=== PATIENT | male | born 2000 | race Caucasian/White ===

== ENCOUNTER 2020-09-04 05:07 | Emergency (ER) | payer MEDICAID, SELFPAY ==
[2020-09-04 05:12] VITALS: BP 154/95; PULSE 54; RESP 16; TEMP 35.7; O2SAT 100
--- NOTE | 2020-09-04 05:23 | ED.GENADULT ---
HPI - General Adult General Chief complaint: Abdominal Pain Stated complaint: abd pain Time Seen by Provider: 09/04/20 05:11 History of Present Illness HPI narrative: Patient is a 20-year-old gentleman who presents to emergency department with chief complaint of epigastric discomfort. Patient reports that this evening he started having pain in the epigastric region reports it radiates to his back patient reports no pain in the lower quadrants reports that he ate [employer] earlier today patient denies fever denies chills denies vomiting or diarrhea. Patient reports is not worsened by anything nor is improved by anything Related Data Allergies Allergy/AdvReac Type Severity Reaction Status Date / Time No Known Allergies Allergy Verified 09/04/20 05:14 Review of Systems Review of Systems: Narrative: A 10 system review of systems was completed on the patient and is negative except for what is stated in the HPI. Nursing and ancillary documentation was reviewed. PMFSH Comments Patient denies past medical history Social history the patient denies smoking or drinking Exam Narrative: Exam Narrative: GENERAL: Well-appearing, well-nourished, and in no acute distress. HEAD: Normocephalic, atraumatic. EYES: PERRLA and EOMI. ENT: Nares clear, no rhinorrhea or epistaxis. Mucous membranes moist. NECK: Supple. CHEST: Clear to auscultation. No respiratory distress. HEART: Regular rate and rhythm. No murmur heard. Normal peripheral pulses. ABDOMEN: Soft, mild tenderness to palpation in the epigastric region, nondistended, normal active bowel sounds. EXTREMITIES: Normal range of motion. No edema. SKIN: Warm, dry, no rash. NEURO: No focal deficits. Alert and oriented x3. PSYCH: Normal mood and affect. Course Vital Signs Vital signs: Vital Signs Temperature 35.7 C L 09/04/20 05:12 Pulse Rate 54 L 09/04/20 05:12 Respiratory Rate 16 09/04/20 05:12 Blood Pressure 154/95 H 09/04/20 05:12 Pulse Oximetry 100 09/04/20 05:12 Temperature 35.7 C L 09/04/20 05:12 Pulse Rate 54 L 09/04/20 05:12 Respiratory Rate 16 09/04/20 05:12 Blood Pressure 154/95 H 09/04/20 05:12 Pulse Oximetry 100 09/04/20 05:12 Medical Decision Making Vital Signs Vital Signs: Vital Signs Temperature 35.7 C L 09/04/20 05:12 Pulse Rate 54 L 09/04/20 05:12 Respiratory Rate 16 09/04/20 05:12 Blood Pressure 154/95 H 09/04/20 05:12 Pulse Oximetry 100 09/04/20 05:12 Temperature 35.7 C L 09/04/20 05:12 Pulse Rate 54 L 09/04/20 05:12 Respiratory Rate 16 09/04/20 05:12 Blood Pressure 154/95 H 09/04/20 05:12 Pulse Oximetry 100 09/04/20 05:12 Lab Data Result diagrams: 09/04/20 05:44 09/04/20 05:44 Labs: Lab Results 09/04/20 09/04/20 09/04/20 Range/Units 05:44 05:44 05:44 WBC 9.0 (4.5-10.0) K/mm3 RBC 4.83 (4.6-6.20) M/mm3 Hgb 14.9 (14.0-18.0) g/dL Hct 44.1 (42.0-52.0) % MCV 91.3 (80-100) fl MCH 30.8 (26-34) pg MCHC 33.8 (32-36) g/dl RDW 12.4 (11.5-14.5) % Plt Count 227 (150-375) k/mm3 MPV 10.0 (7.4-10.4) fl Immature Gran % (Auto) 0.3 (0-0.5) % Neut % (Auto) 55.4 (45.5-73.1) % Lymph % (Auto) 31.7 (18.3-44.2) % Garfield % (Auto) 10.7 H (2.6-8.5) % Eos % (Auto) 1.7 (0-4.4) % Baso % (Auto) 0.2 (0.2-1.2) % Lymph # (Auto) 2.85 (0.9-3.2) K/mm3 Garfield # (Auto) 1.0 H (0.1-0.6) K/mm3 Eos # (Auto) 0.2 (0-0.3) K/mm3 Baso # (Auto) 0.0 (0.0-0.1) K/mm3 Abs Immat Gran (auto) 0.03 (0.00-0.031) K/mm3 Absolute Neuts (auto) 5.0 (1.3-6.7) K/mm3 Absolute Nucleated RBC 0.0 (0.0-0.012) K/mm3 Nucleated RBC % 0.0 (0.0-0.2) % Sodium 141 (137-145) mmol/L Potassium 3.8 (3.4-5.0) mmol/L Chloride 107 (98-107) mmol/L Carbon Dioxide 27 (22-30) mmol/L Anion Gap 7 L (8-16) mmol/L BUN 15 (9-20) mg/dL Creatinine 1.00 (0.7-1.3) mg/dL Estim Creat Clear
[2020-09-04] MEDS: FAMOTIDINE 20 MG/2 ML VIAL IV PUSH (05:46)
[2020-09-04] MEDS: SODIUM CHLORIDE 0.9% IV 1,000 ML 999 ML IV CONT (05:47)
[2020-09-04] MEDS: ONDANSETRON INJ 4 MG/2 ML VIAL IV PUSH (05:47)
[2020-09-04 06:00] LABS: Add Urine Microscopic? NO; Appearance Urine Clear (Clear); Bilirubin Urine Negative (Negative); Blood Urine Negative (Negative); Color Urine Yellow (Yellow); Glucose Urine UA Negative (Negative); Ketones Urine Negative (Negative); Leukocyte Esterase Ur Negative LEU/UL (Negative); Nitrate Urine Negative (Negative); Protein Urine Negative (Negative); Specific Grav Ur 1.023 (1.001-1.035); Urobilinogen Urine Negative mg/dL (<2.0)
[2020-09-04 06:01] LABS: Basophils Percent Auto 0.2 % (0.2-1.2); Eosinophils Absolute Auto 0.2 K/mm3 (0-0.3); Eosinophils Percent Auto 1.7 % (0-4.4); Hematocrit 44.1 % (42.0-52.0); Hemoglobin 14.9 g/dL (14.0-18.0); Immature Granulocyte Absolute 0.03 K/mm3 (0.00-0.031); Immature Granulocyte Percent A 0.3 % (0-0.5); Lymphocytes Absolute Auto 2.85 K/mm3 (0.9-3.2); Lymphocytes Percent Auto 31.7 % (18.3-44.2); Mean Corpuscular HGB Conc 33.8 g/dl (32-36); Mean Corpuscular Hemoglobin 30.8 pg (26-34); Mean Corpuscular Volume 91.3 fl (80-100); Monocytes Percent Auto 10.7 % (2.6-8.5); Neutrophils Percent Auto 55.4 % (45.5-73.1); Platelet Count Result 227 k/mm3 (150-375); Red Blood Count 4.83 M/mm3 (4.6-6.20); Red Cell Distribution Width 12.4 % (11.5-14.5)
[2020-09-04] MEDS: BELLADONNA ALK/PHENOB ELIX 10 ML, MAG HYDROX/ALUMINUM HYD/SIMETH 30 ML, LIDOCAINE HCL 2... PO (06:11)
[2020-09-04 06:20] LABS: Alanine Aminotransferase 17 U/L (4-50); Albumin Level 4.3 g/dL (3.5-5.1); Alkaline Phosphatase 77 U/L (38-126); Anion Gap 7 mmol/L (8-16); Aspartate Amino Transferase 29 U/L (17-59); Bilirubin,Total 1.3 mg/dL (0.2-1.3); Blood Urea Nitrogen 15 mg/dL (9-20); Calcium 9.6 mg/dL (8.4-10.2); Carbon Dioxide 27 mmol/L (22-30); Chloride 107 mmol/L (98-107); Estimated CRCL calculation 106 ml/min; Estimated Glomerular Filt Rate > 60; Glucose 107 mg/dL (75-110); Lipase 28 U/L (23-300); Potassium 3.8 mmol/L (3.4-5.0); Sodium 141 mmol/L (137-145)
[2020-09-04 06:56] VITALS: BP 138/94; PULSE 58; RESP 16; TEMP 36.9; O2SAT 100
== END 2020-09-04 06:57 | disposition home or self-care (01) ==
PROVIDERS: Emergency Provider Emergency Medicine
DX: K29.00 Acute gastritis without bleeding (principal)
CPT/HCPCS: 36415; 80053; 81003; 83690; 85025; 96361; 96374; 96375; 99284; A9270; J2405; J7030

== ENCOUNTER 2021-06-26 14:50 | Emergency (ER) | payer MEDICAID, SELFPAY ==
[2021-06-26 14:58] VITALS: BP 137/116; PULSE 70; RESP 20; TEMP 36.7; O2SAT 100
--- NOTE | 2021-06-26 15:33 | ED.URI ---
HPI - URI/Sore Throat General Chief Complaint: Headache Stated Complaint: headache, tingle Time Seen by Provider: 06/26/21 15:31 Source: patient Mode of arrival: ambulatory Limitations: no limitations History of Present Illness HPI Narrative: Patient 20-year-old male complaining of fever, body aches, headache, cough, fatigue, loss of appetite, nausea that started 3 days ago. Patient states that he was exposed to someone that had COVID. Patient denies any neck stiffness, chest pain, shortness of breath, abdominal pain, vomiting, diarrhea or rash. Patient states that he is not vaccinated from COVID. Related Data Allergies Allergy/AdvReac Type Severity Reaction Status Date / Time No Known Allergies Allergy Verified 09/04/20 05:14 Review of Systems Review of Systems: All systems reviewed & are unremarkable except as noted in HPI and below Constitutional: Constitutional: Denies excessive sweating, Denies lethargy and Denies weight loss Eyes: Eyes: Denies blurry vision, Denies change in vision and Denies loss of vision ENT: Denies dizziness, Denies ear discharge, Denies headache(s), Denies lip swelling, Denies epistaxis, Denies nasal congestion, Denies neck pain, Denies throat swelling and Denies tongue swelling Cardiovascular: Cardiovascular: Denies chest pain, Denies chest pain at rest, Denies chest pain with activity, Denies diaphoresis, Denies rapid heart rate, Denies edema, Denies irregular heart rhythm, Denies lightheadedness, Denies palpitations, Denies dyspnea and Denies dyspnea on exertion Respiratory: Respiratory: Denies chest congestion, Denies cough, Denies hemoptysis, Denies dyspnea and Denies dyspnea on exertion Gastrointestinal: Gastrointestinal: Denies abdominal pain, Denies melena, Denies hematochezia, Denies diarrhea, Denies nausea, Denies vomiting and Denies hematemesis Musculoskeletal: Musculoskeletal: Denies abnormal gait, Denies deformity, Denies joint swelling, Denies limited range of motion, Denies neck pain and Denies numbness Neurologic: Denies Abnormal speech present, Denies abnormal gait, Denies confusion, Denies dizziness, Denies focal weakness, Denies loss of vision, Denies numbness, Denies Other visual disturbances, Denies Sensory deficit (Neuro) and Denies weakness Psychiatric: Psychiatric: Denies confusion, Denies depression, Denies auditory hallucinations, Denies homicidal ideation and Denies suicidal ideation Endocrine: Endocrine: Denies cold intolerance, Denies excessive sweating, Denies heat intolerance and Denies palpitations Hematologic/Lymphatic: Hematologic/Lymphatic: Denies easy bleeding and Denies easy bruising Allergic/Immunologic: Allergic/Immunologic: Denies lip swelling, Denies throat swelling and Denies tongue swelling PMFSH Comments Past medical history: GERD Family history: Unknown Social history: Positive for smoker, no EtOH or drug use Exam Const: General: cooperative, healthy appearing, comfortable, no acute distress, well developed, alert and awake; No confusion Orientation/consciousness: oriented to person, oriented to place, oriented to time, patient oriented x3 and No confusion Limitations: no limitations HENMT: Head: normal to inspection, normocephalic and atraumatic Ears: hearing grossly normal bilaterally, TM normal on the right and TM normal on the left General nose exam: Normal external nose present, Normal nares present and No nasal discharge present Face and sinus: normal facial exam Mouth: Yes Normal oral and palatal mucosa present, Yes lip normal, Yes tongue normal and Yes oropharynx normal Throat: posterior oropharynx normal, tonsils normal and uvula midline Eyes: General: appearance normal, both eyes and all related structures Pupils: Equal, round and reactive pupils present EOM: EOMs intact bilaterally Neck: Neck: normal visual inspection, full ROM, no lymphadenopathy and no meningeal signs Chest: Chest palpation & inspection: normal inspection of the francisca
[2021-06-26 15:43] VITALS: BP 126/81; PULSE 124; RESP 14; TEMP 37.8; O2SAT 100
[2021-06-26] MEDS: ACETAMINOPHEN 325 MG TABLET 650 MG PO (16:31)
[2021-06-26] MEDS: KETOROLAC 30 MG/ML VIAL (*BKC) IM (16:33)
--- NOTE | 2021-06-26 16:52 | PC.NURSE ---
Patient seen walking out of ED, without difficulty and in no distress. Patient left in personal car with family member without discharge paperwork of follow up care information
[2021-06-27 23:20] LABS: SARS-CoV-2 RNA PCR Positive
== END 2021-06-26 16:53 | disposition left against medical advice (07) ==
PROVIDERS: Emergency Provider Emergency Medicine
DX: U07.1 COVID-19 (principal); J06.9 Acute upper respiratory infection, unspecified; K21.9 Gastro-esophageal reflux disease without esophagitis; F17.200 Nicotine dependence, unspecified, uncomplicated
CPT/HCPCS: 87804; 96372; 99283; A9270; C9803; J1885; U0003; U0005